=== PATIENT | male | born 1950 | race Caucasian/White ===

== ENCOUNTER 2021-04-03 00:04 | Emergency (ER) | payer OTHER ==
[~2021-04-03] VITALS: Ht 172.7 cm; Wt 113.4 kg
[2021-04-03 00:31] LABS: BASOPHILS ABSOLUTE AUTO 0.04 K/mm3 (0.00-0.23); BASOPHILS PERCENT AUTO 0 % (0-2); EOSINOPHILS ABSOLUTE AUTO 0.15 K/mm3 (0.00-0.68); EOSINOPHILS PERCENT AUTO 1 % (0-6); Hematocrit 33.9 % (37.0-53.0); Hemoglobin 11.5 g/dL (13.5-17.5); IMMATURE GRAN ABSOLUTE AUTO 0.13 K/mm3 (0.00-0.10); IMMATURE GRAN PERCENT AUTO 1 % (0-1); LYMPHOCYTES ABSOLUTE AUTO 0.58 K/mm3 (0.84-5.20); LYMPHOCYTES PERCENT AUTO 3 % (21-46); MONOCYTES ABSOLUTE AUTO 1.35 K/mm3 (0.16-1.47); MONOCYTES PERCENT AUTO 7 % (4-13); Mean Corpuscular HGB 31.6 pg (26.0-34.0); Mean Corpuscular HGB Conc 33.9 g/dL (31.5-36.5); Mean Corpuscular Volume 93 fL (80-100); Mean Platelet Volume 8.8 fL (9.1-12.4); NEUTROPHILS ABSOLUTE AUTO 15.89 K/mm3 (1.96-9.15); NEUTROPHILS PERCENT AUTO 88 % (41-73); Platelet Count 228 K/mm3 (150-400); RDW Coefficient Variation 13.3 % (11.7-14.2); RDW Standard Deviation 45.6 fL (35.1-46.3); Red Blood Cell Count 3.64 M/mm3 (4.30-5.90); White Blood Cell Count 18.14 K/mm3 (4.00-11.30)
[2021-04-03 00:51] LABS: PCO2 Arterial 43.3 mmHg (35-45); PO2 Arterial 60.1 mmHg (80-100); pH Blood Arterial 7.48 (7.35-7.45)
[2021-04-03 00:51] LABS: Alanine Aminotransfer (ALT/SGP 28 U/L (12-78); Albumin, Blood 2.9 g/dL (3.4-5.0); Albumin/Globulin Ratio 0.7 (0.8-1.8); Alk Phos 159 U/L (50-136); Anion Gap 4 mmol/L (6-16); Aspartate Aminotrans (AST/SGOT 33 U/L (12-37); Bilirubin, Total 1.1 mg/dL (0.1-1.0); Blood Urea Nitrogen 16 mg/dL (8-24); Bun/Creatinine Ratio 27.4 (12.0-20.0); CO2, Blood 33 mmol/L (21-32); Calcium, Blood 8.4 mg/dL (8.5-10.1); Chloride, Blood 93 mmol/L (98-108); Creatinine, Blood 0.59 mg/dL (0.60-1.20); Globulin, Blood 4.3 g/dL (2.2-4.0); Glomerular Filtration Rate >60 (60-); Glucose, Blood 143 mg/dL (70-99); Magnesium, Blood 2.3 mg/dL (1.6-2.4); Potassium, Blood 3.6 mmol/L (3.5-5.5); Sodium, Blood 130 mmol/L (136-145); Total Protein, Blood 7.2 g/dL (6.4-8.2); Troponin I 0.141 ng/mL (0.000-0.040)
[2021-04-03 01:47] LABS: Influenza A, PCR NEGATIVE (NEGATIVE); Influenza B, PCR NEGATIVE (NEGATIVE); Resp Syncytial Virus, PCR NEGATIVE (NEGATIVE); SARS-Cov-2 (COVID-19) PCR, MMC NEGATIVE (NEGATIVE)
== END 2021-04-03 07:32 | disposition home or self-care (01) ==
LOC: ER 00:04
PROVIDERS: Emergency Medicine
DX: A41.9 Sepsis, unspecified organism (principal); R65.20 Severe sepsis without septic shock; J96.01 Acute respiratory failure with hypoxia; J44.0 Chronic obstructive pulmonary disease with (acute) lower respiratory infection; J18.9 Pneumonia, unspecified organism; I21.4 Non-ST elevation (NSTEMI) myocardial infarction; I10 Essential (primary) hypertension; I48.91 Unspecified atrial fibrillation; G47.33 Obstructive sleep apnea (adult) (pediatric); Z20.822 Contact with and (suspected) exposure to COVID-19
CPT/HCPCS: 0241U; 36415; 36600; 70450; 71045; 80053; 82803; 83605; 83735; 83880; 84484; 85025; 93005; 93010; A9270; J0692; J3370; J7050

== ENCOUNTER 2021-10-01 10:23 | Inpatient (IN) | payer OTHER, MEDICARE ==
[~2021-10-01] VITALS: Ht 162.6 cm; Wt 112.3 kg
[2021-10-01 12:40] LABS: BASOPHILS ABSOLUTE AUTO 0.05 K/mm3 (0.00-0.23); BASOPHILS PERCENT AUTO 1 % (0-2); EOSINOPHILS ABSOLUTE AUTO 0.31 K/mm3 (0.00-0.68); EOSINOPHILS PERCENT AUTO 6 % (0-6); Hematocrit 36.2 % (37.0-53.0); Hemoglobin 11.6 g/dL (13.5-17.5); IMMATURE GRAN ABSOLUTE AUTO 0.01 K/mm3 (0.00-0.10); IMMATURE GRAN PERCENT AUTO 0 % (0-1); LYMPHOCYTES ABSOLUTE AUTO 0.71 K/mm3 (0.84-5.20); LYMPHOCYTES PERCENT AUTO 14 % (21-46); MONOCYTES ABSOLUTE AUTO 0.36 K/mm3 (0.16-1.47); MONOCYTES PERCENT AUTO 7 % (4-13); Mean Corpuscular HGB 30.9 pg (26.0-34.0); Mean Corpuscular Volume 97 fL (80-100); Mean Platelet Volume 9.5 fL (9.1-12.4); NEUTROPHILS ABSOLUTE AUTO 3.53 K/mm3 (1.96-9.15); NEUTROPHILS PERCENT AUTO 71 % (41-73); Platelet Count 177 K/mm3 (150-400); RDW Coefficient Variation 14.7 % (11.7-14.2); RDW Standard Deviation 52.3 fL (35.1-46.3); Red Blood Cell Count 3.75 M/mm3 (4.30-5.90); White Blood Cell Count 4.97 K/mm3 (4.00-11.30)
[2021-10-01 13:45] LABS: Albumin, Blood 3.4 g/dL (3.4-5.0); Albumin/Globulin Ratio 0.8 (0.8-1.8); Bilirubin, Total 0.8 mg/dL (0.1-1.0); Bun/Creatinine Ratio 28.5 (12.0-20.0); Calcium, Blood 8.9 mg/dL (8.5-10.1); Creatinine, Blood 0.67 mg/dL (0.60-1.20); Globulin, Blood 4.1 g/dL (2.2-4.0); Potassium, Blood 3.5 mmol/L (3.5-5.5); Total Protein, Blood 7.5 g/dL (6.4-8.2)
[2021-10-01 13:52] LABS: Source, Urine Clean Catch
[2021-10-01 14:10] LABS: Appearance, Urine Clear (Clear); Bilirubin, Urine Neg (Neg); Blood, Urine 2+ (Neg); Color, Urine Yellow (P-Yellow); Glucose Qualitative, Urine Neg (Neg); Ketones, Urine Neg (Neg); Leukocyte Esterase, Urine 1+ (Neg); Nitrite, Urine Neg (Neg); Protein, Urine 1+ (Neg); Specific Gravity, Urine 1.015 (1.003-1.022); Urobilinogen, Urine NORM (Normal)
[2021-10-01 14:32] LABS: Bacteria Few /hpf; Squamous Epithelial Cells Few /hpf (Few)
[2021-10-01 14:33] LABS: Free Thyroxine 1.1 ng/dL (0.70-1.60)
[2021-10-01 14:35] LABS: Thyroid Stimulating Hormone 1.7 uIU/mL (0.360-4.800)
[2021-10-01 15:13] LABS: Base Excess Venous 4.8 mmol/L; Bicarbonate Venous 27.9 mmol/L (24.0-30.0); PCO2 Venous 58.6 mmHg (38-42); pH Blood Venous 7.33 (7.34-7.37)
[2021-10-01 18:53] LABS: International Normalized Ratio 1.17; Prothrombin Time Results 12.2 Sec (9.7-11.5)
--- NOTE | 2021-10-01 20:47 | NUR ---
ADMISSION/UPDATE REPORT RECIEVED FROM ER NURSE. PATIENT ARRIVED TO PCU 11, SLID OVER TO PCU BED WITH ASSISTANCE OF ER STAFF. CAREGIVER AT BEDSIDE BUT IS NOT PLANNING TO STAY OVERNIGHT. PATIENT UNABLE TO COMMUNICATE WITH STAFF AT THIS TIME D/T GARBLED SPEECH/CONFUSION. FOLLOWS SOME COMMANDS BUT PULLS AT LINES/CORDS. HX DEVELOPMENTAL DELAY. VSS. PATIENT ON RA WITH O2 SAT >90%. BED ALARM ON FOR SAFETY CAREGIVER STATES THAT PATIENT "LIKES TO ROLL AROUND IN BED". CALL LIGHT IN REACH. CALL PLACED TO RESIDENT DR. Ludwig REGARDING LACTULOSE ENEMA. ORDER RECIEVED FOR RECTAL TUBE D/T PATIENT NOT FOLLOWING DIRECTIONS.
[2021-10-01] MEDS ORDERED: ALBU2.5V5 INH (22:38)
[2021-10-01] MEDS ORDERED: DOC250 PO (22:39)
[2021-10-01] MEDS ORDERED: ABILIFY MYCITE10 M2 PO (22:39)
[2021-10-01] MEDS ORDERED: FLUO10 PO (22:40)
[2021-10-01] MEDS ORDERED: LAMO100 (22:41)
[2021-10-01] MEDS ORDERED: METO25ER PO (22:42)
[2021-10-01] MEDS ORDERED: LOSA25 PO (22:42)
[2021-10-01] MEDS ORDERED: PHENOBARBITAL97.2 MG (22:43)
[2021-10-01] MEDS ORDERED: POTCHL20ER PO (22:44)
[2021-10-01] MEDS ORDERED: CLOP75 PO (22:44)
[2021-10-01] MEDS ORDERED: ALBU90OI6 INH (22:45)
[2021-10-01] MEDS ORDERED: TAMS.4ER PO (22:46)
[2021-10-01] MEDS ORDERED: SENNA LAXATIVE8.6 MG PO (22:46)
[2021-10-01] MEDS ORDERED: XARELTO20 MG (22:47)
[2021-10-01] MEDS ORDERED: TORSE20 PO (22:47)
[2021-10-01] MEDS ORDERED: OLAN10 (22:48)
[2021-10-02 04:06] LABS: Base Excess Venous 8.8 mmol/L; Bicarbonate Venous 31.1 mmol/L (24.0-30.0); PCO2 Venous 50.1 mmHg (38-42); pH Blood Venous 7.43 (7.34-7.37)
[2021-10-02 04:08] LABS: BASOPHILS ABSOLUTE AUTO 0.06 K/mm3 (0.00-0.23); BASOPHILS PERCENT AUTO 1 % (0-2); EOSINOPHILS ABSOLUTE AUTO 0.37 K/mm3 (0.00-0.68); EOSINOPHILS PERCENT AUTO 6 % (0-6); Hematocrit 35.1 % (37.0-53.0); IMMATURE GRAN ABSOLUTE AUTO 0.02 K/mm3 (0.00-0.10); IMMATURE GRAN PERCENT AUTO 0 % (0-1); LYMPHOCYTES ABSOLUTE AUTO 0.77 K/mm3 (0.84-5.20); LYMPHOCYTES PERCENT AUTO 12 % (21-46); MONOCYTES ABSOLUTE AUTO 0.71 K/mm3 (0.16-1.47); MONOCYTES PERCENT AUTO 11 % (4-13); Mean Corpuscular HGB 30.4 pg (26.0-34.0); Mean Corpuscular HGB Conc 31.3 g/dL (31.5-36.5); Mean Corpuscular Volume 97 fL (80-100); Mean Platelet Volume 9.1 fL (9.1-12.4); NEUTROPHILS ABSOLUTE AUTO 4.67 K/mm3 (1.96-9.15); NEUTROPHILS PERCENT AUTO 71 % (41-73); Platelet Count 185 K/mm3 (150-400); RDW Coefficient Variation 14.4 % (11.7-14.2); RDW Standard Deviation 51.4 fL (35.1-46.3); Red Blood Cell Count 3.62 M/mm3 (4.30-5.90)
[2021-10-02 04:38] LABS: Albumin, Blood 3.4 g/dL (3.4-5.0); Albumin/Globulin Ratio 0.9 (0.8-1.8); Bun/Creatinine Ratio 29.6 (12.0-20.0); Calcium, Blood 8.9 mg/dL (8.5-10.1); Creatinine, Blood 0.51 mg/dL (0.60-1.20); Globulin, Blood 3.9 g/dL (2.2-4.0); Potassium, Blood 3.8 mmol/L (3.5-5.5); Total Protein, Blood 7.3 g/dL (6.4-8.2)
[2021-10-02 05:05] LABS: Source, Urine Foley catheter
[2021-10-02 05:10] LABS: Bilirubin, Urine Neg (Neg); Blood, Urine 4+ (Neg); Glucose Qualitative, Urine Neg (Neg); Ketones, Urine Neg (Neg); Leukocyte Esterase, Urine 1+ (Neg); Nitrite, Urine Neg (Neg); Protein, Urine 1+ (Neg); Urobilinogen, Urine 1+ (Normal)
[2021-10-02 05:23] LABS: Appearance, Urine Clear (Clear); Color, Urine Yellow (P-Yellow)
[2021-10-02 05:25] LABS: Bacteria Rare /hpf; Squamous Epithelial Cells Rare /hpf (Few)
--- NOTE | 2021-10-02 05:29 | NUR ---
UPDATE PATIENT HAS NOT URINATED SINCE ADMISSION. BLADDER SCAN PERFORMED, >900 PER BLADDER SCAN. CALL PLACED TO RESIDENT DR. Ludwig, ORDER RECIEVED FOR RODRIGUEZ. INSERTED AND IMMIDIATLEY DRAINED 700mls, CLAMPED TO PREVENT SPASMS.
--- NOTE | 2021-10-02 06:43 | NUR ---
SHIFT SUMMARY PATIENT ALERT AND ORIENTED x1-2, HX DEV. DELAY. PATIENT SEEMS TO BE CLOSER TO BASELINE THAN WHEN ADMITTED AT START OF SHIFT. GARBLED SPEECH. FORGETFUL, PULLS AT PULSE OX AND TELE LEADS, BED ALARM ON FOR SAFETY. VSS. PATIENT WEARING 2L NC WITH O2 SAT >90%. RECTAL TUBE REMOVED AROUND 0530 D/T LITTLE TO NO LIQUID OUTPUT IN DRAINAGE BAG. RODRIGUEZ IN PLACE DRAINING YELLOW URINE TO GRAVITY. PATIENT ATTEMPTS TO ASSIST STAFF WHEN REPOSITIONING IN BED. NO OTHER SIGNIFICANT CHANGES THIS SHIFT, WILL REPORT TO DAY SHIFT RN.
--- NOTE | 2021-10-02 11:18 | NUR ---
LOWER HEARTRATE: SPOKE WITH PROVIDER THIS AM IN REGARDS TO HEARTRATE. PATIENT RECIEVED IV METOPROLOL, BLOOD PRESSURE, WAS SLIGHTLY ELEVATED PULSES MID 70'S PATIENT TOLERATED WELL, HOWEVER, WHEN PATIENT SLEEPING, HR DROPPED TO HIGH 40'S AND JUMPS RIGHT BACK UP TO 60-70'S PROVIDER INFORMED ME TO HAVE PATIENT PLACED, ON CPAP, CALL TO RT, RT DENIED NEED OFR PATIENT OT BE ON CPAP SATURATION WERE SUSTAINED WITH O2 VIA NC. WILL CONTINUE TO TR
--- NOTE | 2021-10-02 16:08 | NUR ---
END OF SHIFT: PATIENT HAS BEEN SLIGHTLY IMPROVED, FROM THE BEGGINING OF SHIFT MENTATION CANTU, AND WAS ABLE TO SLEEP FOR A COUPLE OF HOURS TODYA. PATIENT DID HAVE A US THAT WARRENTED A SURGICAL CONSULT FROM DR. CAMERON, TO DR. KHAN. DUE TO CHOLETHISIASIS AND POSSIBLE CHOLETHCYSITIS, ALSO POSSIBLE CIRROSIS SEEN. PROVIDER CALLED, AND LEFT A MESSAGE ON CELL AND PLACED ON LIST TO SEE. NO SIGNS OR SYMPTOMS OF ABD PAIN EVEN WITH PALPATION. PATIENT IS A FEEDER, WILL BE NPO AT MIDNIGHT JUST IN CASE. RECIEVING CARDIAC DIET THAT IS MECH SOFT. PATIENT TOLERATED WELL STILL SOUND COARSE AND EXP WHEEZE, SPO2 HAS BEEN GREATER THAN 94% ON 2L NC, AND >90% ON RA WHEN HE REMOVES HIS PROBE. BED ALARM ON BUT HAS NOT TRIED TO GET UP SINCE THIS AM.
--- NOTE | 2021-10-03 05:38 | NUR ---
SHIFT SUMMARY PATIENT ALERT, ORIENTED x2-3. SPEECH CONTINUES TO BE GARBLED, BUT IS BETTER SINCE ADMISSION. VSS, HYPERTENSIVE AT TIMES. REMAINS ON RA WITH O2 SAT MAINTAINING LOW TO MID 90s. NPO D/T POSSIBLE SURGICAL CONSULT REGARDING POSSIBLE CHOLELITHIASIS/CHOLECYSTITIS PER DAY SHIFT REPORT. PATIENT DENIES ABDOMINAL PAIN. NO BM THIS SHIFT. RODRIGUEZ IN PLACE DRAINING DARK YELLOW, RED TINGED URINE TO GRAVITY. BED BATH COMPLETED, DENTURES SOAKING. NO OTHER SIGNIFICANT CHANGES THIS SHIFT. WILL REPORT TO DAY SHIFT RN.
[2021-10-03 05:50] LABS: BASOPHILS ABSOLUTE AUTO 0.06 K/mm3 (0.00-0.23); BASOPHILS PERCENT AUTO 1 % (0-2); EOSINOPHILS ABSOLUTE AUTO 0.31 K/mm3 (0.00-0.68); EOSINOPHILS PERCENT AUTO 5 % (0-6); Hematocrit 35.9 % (37.0-53.0); Hemoglobin 11.2 g/dL (13.5-17.5); IMMATURE GRAN ABSOLUTE AUTO 0.02 K/mm3 (0.00-0.10); IMMATURE GRAN PERCENT AUTO 0 % (0-1); LYMPHOCYTES ABSOLUTE AUTO 1.02 K/mm3 (0.84-5.20); LYMPHOCYTES PERCENT AUTO 15 % (21-46); MONOCYTES ABSOLUTE AUTO 0.88 K/mm3 (0.16-1.47); MONOCYTES PERCENT AUTO 13 % (4-13); Mean Corpuscular HGB 30.8 pg (26.0-34.0); Mean Corpuscular HGB Conc 31.2 g/dL (31.5-36.5); Mean Corpuscular Volume 99 fL (80-100); NEUTROPHILS ABSOLUTE AUTO 4.55 K/mm3 (1.96-9.15); NEUTROPHILS PERCENT AUTO 67 % (41-73); Platelet Count 183 K/mm3 (150-400); RDW Coefficient Variation 14.6 % (11.7-14.2); RDW Standard Deviation 53.1 fL (35.1-46.3); Red Blood Cell Count 3.64 M/mm3 (4.30-5.90); White Blood Cell Count 6.84 K/mm3 (4.00-11.30)
[2021-10-03 06:36] LABS: Albumin, Blood 3.2 g/dL (3.4-5.0); Anion Gap 5 mmol/L (6-16); Blood Urea Nitrogen 13 mg/dL (8-24); Bun/Creatinine Ratio 26.9 (12.0-20.0); CO2, Blood 29 mmol/L (21-32); Chloride, Blood 106 mmol/L (98-108); Creatinine, Blood 0.48 mg/dL (0.60-1.20); Glomerular Filtration Rate 110 (60-); Glucose, Blood 91 mg/dL (70-99); Phosphorus, Blood 2.5 mg/dL (2.5-4.9); Potassium, Blood 3.9 mmol/L (3.5-5.5); Sodium, Blood 140 mmol/L (136-145)
[2021-10-03] MEDS ORDERED: ACET500 PO (10:51)
[2021-10-03] MEDS ORDERED: OXYM.05NI (10:56)
[2021-10-03] MEDS ORDERED: BISA10S PR (10:57)
[2021-10-03] MEDS ORDERED: POLY500 PO (10:58)
[2021-10-03] MEDS ORDERED: FLUO10 PO (10:58)
[2021-10-03] MEDS ORDERED: MIRALAX1713 PO (10:59)
[2021-10-03] MEDS ORDERED: NYSTRIT TOP (11:02)
[2021-10-03] MEDS ORDERED: PEPTO BISMOL PO (11:03)
--- NOTE | 2021-10-03 17:12 | NUR ---
END OF SHIFT SUMMARY: PATIENT HASA BEEN PLEASANT WITH NO CHANGE TO MENTATINO, HAS BEEN NPO FOR POSSIBLE SURGICAL NEED, TO WHICH DR. MICHELLE THE SURGEON ORDERED A HIDA SCAN THAT RESULTED WITH POSITIVE RESULTS. PATIENT HAS ABSOLUTELY NO STOMACH PAIN, EVEN WITH DEEP PALPATION. PATIENT HAS BEEN AFIB 80-100'S DENIES CHEST PAIN OR PAIN AT ALL, IN TOTAL 2 BM'S THAT WERE INCONTINENT, RECIEVED ALL SCHEDULED DOSES OF LACTULOSE. WILL BE NPO AT [address] TOMORROW. CATH CARE DONE MULTIPLE TIMES BOTH BY RN AND PATIENT ROOM SERVICE FOOD SERVICE ATTENDANT, REPOSITIONING TO THE PATIENT WAS Q2 OR SOONER, ECHO WAS ALSO PERFORMED TODAY, NO RESULTS OF THIS NOTE. WILL CONTINUE TO MONITOR. [facility] HAS BEEN UPDATED THE PLAN OF THIS MORNING, NO SURGERY PLANNED FOR TOMORROW, DEPENDING ON CT ACCORDING TO DR. MICHELLE. MEPILEX STILL IN PLACE BARRIER CREAM TO SCROTUM, PATIENT IS COMPLETE FEEDER WILL BE FED BY MYSELF OR PCT. RECONCILED HOME MEDICATIONS FROM MAR FROM [facility] PLEASE SEE NEW CHANGES. WILL CONTINUE TO MONITOR PATIENT UNTIL SHIFT CHANGE. NO CONCERNS FROM EITHER THIS MILL ATTENDANT OR THE PATIENT.
--- NOTE | 2021-10-04 00:03 | NUR ---
UPDATE CALL PLACED TO HOSPITALIST REGARDING PATIENT'S HOME METOPROLOL DOSE. PATIENT RECIEVING HOME LOSARTAN DOSE IN AM BUT METOPROLOL IS NOT ORDERED. 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 ORDER RECIEVED FOR ONE DOSE NOW, THEN SCHEDULED FOR 2100.
[2021-10-04 05:01] LABS: BASOPHILS ABSOLUTE AUTO 0.07 K/mm3 (0.00-0.23); BASOPHILS PERCENT AUTO 1 % (0-2); EOSINOPHILS ABSOLUTE AUTO 0.27 K/mm3 (0.00-0.68); EOSINOPHILS PERCENT AUTO 4 % (0-6); Hematocrit 36.2 % (37.0-53.0); Hemoglobin 11.4 g/dL (13.5-17.5); IMMATURE GRAN ABSOLUTE AUTO 0.01 K/mm3 (0.00-0.10); IMMATURE GRAN PERCENT AUTO 0 % (0-1); LYMPHOCYTES ABSOLUTE AUTO 0.83 K/mm3 (0.84-5.20); LYMPHOCYTES PERCENT AUTO 13 % (21-46); MONOCYTES ABSOLUTE AUTO 0.78 K/mm3 (0.16-1.47); MONOCYTES PERCENT AUTO 12 % (4-13); Mean Corpuscular HGB 30.9 pg (26.0-34.0); Mean Corpuscular HGB Conc 31.5 g/dL (31.5-36.5); Mean Corpuscular Volume 98 fL (80-100); Mean Platelet Volume 9.1 fL (9.1-12.4); NEUTROPHILS ABSOLUTE AUTO 4.69 K/mm3 (1.96-9.15); NEUTROPHILS PERCENT AUTO 70 % (41-73); Platelet Count 188 K/mm3 (150-400); RDW Coefficient Variation 14.7 % (11.7-14.2); RDW Standard Deviation 53.1 fL (35.1-46.3); Red Blood Cell Count 3.69 M/mm3 (4.30-5.90); White Blood Cell Count 6.65 K/mm3 (4.00-11.30)
[2021-10-04 05:21] LABS: Albumin, Blood 3.2 g/dL (3.4-5.0); Anion Gap 6 mmol/L (6-16); Blood Urea Nitrogen 11 mg/dL (8-24); Bun/Creatinine Ratio 19.5 (12.0-20.0); CO2, Blood 30 mmol/L (21-32); Calcium, Blood 9.2 mg/dL (8.5-10.1); Chloride, Blood 105 mmol/L (98-108); Creatinine, Blood 0.56 mg/dL (0.60-1.20); Glomerular Filtration Rate 105 (60-); Glucose, Blood 100 mg/dL (70-99); Potassium, Blood 3.8 mmol/L (3.5-5.5); Sodium, Blood 141 mmol/L (136-145)
--- NOTE | 2021-10-04 06:10 | NUR ---
SHIFT SUMMARY PATIENT ALERT AND ORIENTED x2-3. HX DEV. DELAY. [facility] CAREGIVER AT BEDSIDE AT START OF SHIFT, STATING PATIENT IS CLOSE TO HIS BASELINE. SPEECH IS GARBLED, BUT LESS THAN AT ADMISSION. VSS, HYPERTENSIVE AT TIMES, SEE PREVIOUS NOTE. REMAINS ON RA ENTIRE SHIFT WITH O2 SAT >90%. POWERGLIDE PLACED THIS SHIFT BY TIGER MACHINE OPERATOR. DENIES PAIN T/O NIGHT. PATIENT ABLE TO SLEEP OFF AND ON THIS SHIFT. INCONINENT BMx2. RODRIGUEZ IN PLACE DRAINING DARK YELLOW URINE TO GRAVITY. NPO SINCE [address] MICHELLE. NO OTHER SIGNIFICANT CHANGES THIS SHIFT. WILL REPORT TO DAY SHIFT RN.
--- NOTE | 2021-10-04 10:22 | NUR ---
AM NOTE: PT HAD ABD CT SCAN DONE THSI AM AWAITING FOR SURGEON TO REVIEW RESULT, PT KEPT PO FOR POSSIBLE PROCEDURE. PT TO POSSIBLY DISCHARGE IF NO SURGICAL INTERVENTION NEEDED. PT MOSTLY AT BASELINE NOW ALERT AND TALKING, FOLLOWS COMMANDS, ABLE TO MAKE NEEDS KNOWN. PT DENIES ANY KIND OF PAIN. VITALS HRR AFIB 80'S, BP SYSTOLIC 160'S, SATS ABOVE 90% ON RA, AFEBRILE. CAREGIVER AT BEDSIDE AT THIS TIME. PT ON LACTULOSE NO BM REPORTED YET FOR THE SHIFT, NO OTHER ISSUES REPORTED WILL CONTINUE TO MONITOR
[2021-10-04] MEDS ORDERED: Enulose10 GM/15 M PO (13:27)
[2021-10-04] MEDS ORDERED: [UNRECOGNIZED DRUG - CODE] PO (13:28)
--- NOTE | 2021-10-04 13:43 | NUR ---
PT DSICARGE TO HOME TODAY WITH DISCHARGE ORDERS, DR MICHELLE CAME BY TO CONFIRM THAT PT DOES NOT NEED SURGICAL INTERVENTION AT THIS TIME. CAREGIVER WAS AT BEDSIDE WHEN DR MICHELLE SAW PT. PT WAS MORE ALERT TO BASELINE AND TALKING, VITALS HRR 80'S AFIB, BP SYSTOLIC 160'S, SATS ABOVE 90% ON RA, AFEBRILE. ALL MEDICATIONS WAS GIVEN THIS MORNING WITH APPLESAUCE, NO ISSUES NOTED. DIET RESUMED AT LUNCH TIME PT ABLE TO TOLERATE PT HAD AN XTRA LARGE BM AFTER, SOFT AND BROWN IN COLOR. PT DENIES ANY KIND OF PAIN, KEEPS COMPLAINING HE'S TIRED AND WANTS TO TAKE A NAP. [facility] [facility] CAME IN WITH TRANSPORT READY PT WAS HOYERED TO PERSONAL WHEELCHAIR. ALL BELONGINGS SENT WITH THE PT, DISCHARGE INSTRUCTIONS AND NEW MEDICATIONS DISCLOSED WITH THE [employer]. NO OTHER ISSUES REPORTED. PT ACCOMPANIED VIA WHEELCHAIR FOR TRANSPORT WITH THE CAREGIVER.
[2021-10-05 10:11] LABS: METHYLMALONIC ACID, SERUM 512 nmol/L (0-378)
== END 2021-10-04 13:36 | DRG 91 ==
LOC: ER 10:23 → PCU 17:10
PROVIDERS: Family Medicine; Physician Assistant; Student in an Organized Health Care Education/Training Program; ADMIT Internal Medicine
DX: G92.8 Other toxic encephalopathy (principal); J96.02 Acute respiratory failure with hypercapnia; E72.20 Disorder of urea cycle metabolism, unspecified; I48.20 Chronic atrial fibrillation, unspecified; Z68.41 Body mass index [BMI] 40.0-44.9, adult; K80.10 Calculus of gallbladder with chronic cholecystitis without obstruction; G47.33 Obstructive sleep apnea (adult) (pediatric); G40.909 Epilepsy, unspecified, not intractable, without status epilepticus; E66.01 Morbid (severe) obesity due to excess calories; I49.5 Sick sinus syndrome; I10 Essential (primary) hypertension; E78.5 Hyperlipidemia, unspecified; D64.9 Anemia, unspecified; F20.9 Schizophrenia, unspecified; K74.60 Unspecified cirrhosis of liver; F31.9 Bipolar disorder, unspecified; Z98.890 Other specified postprocedural states; Z88.1 Allergy status to other antibiotic agents; Z79.02 Long term (current) use of antithrombotics/antiplatelets; Z79.899 Other long term (current) drug therapy
CPT/HCPCS: 36415; 70450; 71045; 74170; 76705; 78226; 80053; 80069; 80175; 80184; 81001; 82140; 82550; 82803; 83090; 83921; 84146; 84439; 84443; 85025; 85610; 87086; 93306; 94762; 96374; 99285-25; A9270; A9537; C1751; G0480; J1650; J1953; J1956; J2543; J7030; J7040; Q9967